=== PATIENT | female | born 1970 ===

== ENCOUNTER 2017-01-28 08:32 | Day surgery (SDC) | payer SELFPAY ==
[2017-01-09 16:19] VITALS: BMI 23.3
[2017-01-28 09:31] LABS: HEMATOCRIT 37.8 % (34.0-47.0); MEAN CELL VOLUME 90.8 fl (81.0-99.0); MEAN CORPUSCULAR HEMOGLOBIN 30.3 pg (27.0-31.0); MEAN CORPUSCULAR HGB CONC 33.3 g/dL (33.0-37.0); RED CELL DISTRIBUTION WIDTH 14.1 % (11.5-14.5); WHITE BLOOD COUNT 6.7 K/uL (4.8-10.8)
[2017-01-28] MEDS ORDERED: Lactated Ringer's 1,000 ML IV ONE (10:45)
[2017-01-28] MEDS ORDERED: Lactated Ringer's 1,000 ML IV SCH (11:15)
[2017-01-28] MEDS ORDERED: Silver Nitrate Topical - Stick ONE (11:45)
[2017-01-28 12:23] VITALS: O2SAT 100
[2017-01-28 13:16] VITALS: RESP 18
[2017-01-28 14:16] VITALS: BP 117/70; PULSE 65; TEMP 97.8
--- NOTE | 2017-02-03 18:17 | OP ---
PROCEDURE DATE: 01/28/2017 PREOPERATIVE DIAGNOSES: Dysmenorrhea with heavy menstrual bleeding and thickened endometrium. POSTOPERATIVE DIAGNOSES: Dysmenorrhea with heavy menstrual bleeding and thickened endometrium. PROCEDURES: Hysteroscopy, D and C, polypectomy with MyoSure. SURGEON: Carloz Hyman MD. SENIOR CYBER INTELLIGENCE ANALYST: Shannan Khalil, PGY-2. TYPE OF ANESTHESIA: General. INTRAVENOUS FLUIDS: 750 mL lactated Ringer's. DISTENSION MEDIA: Normal saline. FLUID DEFICIT: 800 mL. ESTIMATED BLOOD LOSS: 5 mL. URINE OUTPUT: 25 mL, clear. SPECIMENS: Endometrial polyp, endometrial curettings. COMPLICATIONS: None. FINDINGS: Exam under anesthesia revealed a normal-sized anteverted uterus with normal contour and normal bilateral adnexa. Hysteroscopy shows an approximately 3 cm endometrial polyp, the entire endometrial cavity. Once removed, the remainder of the endometrium appeared normal and the adnexa appeared normal bilaterally. DESCRIPTION OF PROCEDURE: The patient was taken to the operating room where general anesthesia was administered without difficulty. She was then placed in dorsal lithotomy position using the Vinay stirrups. An exam under anesthesia revealed a normal anteverted uterus and the patient was then prepped and draped in normal sterile fashion. A weighted speculum was then placed in the posterior aspect of the vagina. The bladder was then drained of clear urine using a red rubber catheter. The single tooth tenaculum was then used to grasp the anterior lip of the cervix and uterus was carefully sounded to 9 cm. The cervical os was then sequentially dilated to accommodate the hysteroscope using Hegar dilators. The hysteroscope was then introduced and under direct visualization, the uterus was distended with normal saline and the endometrial polyp was seen in the entire endometrial cavity. The MyoSure device was then introduced and was enabled carefully performing the polypectomy to remove the 3 cm endometrial polyp. The MyoSure device and hysteroscope was then withdrawn and the cervix was then further dilated to accommodate a large curette. The uterus was then curetted in a clockwise fashion until a gritty feeling was then noted in all aspects of the uterus. The polyp and endometrial shavings were then sent to Pathology. The tenaculum was removed from the cervix and good hemostasis was noted after pressure was applied and silver nitrate was used. The patient tolerated the procedure well. The instrument and sponge counts were correct x2. The patient was awakened from general anesthesia and taken to recovery room in stable condition. The patient will go home after recovering from anesthesia and meeting all criteria for discharge. She was given instructions to follow up in the office in 2 weeks and given a prescription for a medicine for pain. Carloz Hyman MD
== END 2017-01-28 16:25 | disposition home or self-care (01) ==
LOC: H.OPSURG 08:32
PROVIDERS: ATTEND Obstetrics & Gynecology
DX: N84.0 Polyp of corpus uteri (principal); N94.6 Dysmenorrhea, unspecified; E03.9 Hypothyroidism, unspecified; Z88.0 Allergy status to penicillin
CPT/HCPCS: 36415; 58558; 85027; 88305; J1100; J1885; J2001; J2250; J2405; J2704; J3010; J7030; J7120